=== PATIENT | male | born 1955 | race Caucasian/White ===

== ENCOUNTER → 2019-09-26 | Outpatient (CLI) | payer OTHER ==
[~2019-09-26] MED LIST: ASPI81TA50 PO; ATOR10TA PO; CHON250C PO; GLUC100018 PO; MELA10CA PO; MULT-246 PO; NEBI5TAB2 PO; OMEG100T PO
--- NOTE | 2019-09-26 09:16 | RAD ---
Examination: Ultrasound right groin HISTORY: History of right groin pain COMPARISON: None available. FINDINGS: Ultrasound of the right groin demonstrates no definite evidence of mass or lesion in the right groin region. IMPRESSION: No definite evidence of mass lesion or hernia visualized in the right groin. Electronically signed by: Tremaine Post MD (09/26/2019 9:13 AM) [id number]
== END ==
LOC: US 08:27
PROVIDERS: ATTEND Surgery
DX: R10.30 Lower abdominal pain, unspecified (principal)
CPT/HCPCS: 76881